=== PATIENT | female | born 1995 | race Caucasian/White ===

== ENCOUNTER 2021-07-16 22:55 | Inpatient (IN) | payer BC, SELFPAY ==
[2021-07-16] VITALS (8 sets, daily range): BP systolic 135–144; BP diastolic 82–101; PULSE 81–93; TEMP 36; O2SAT 99; BMI 33.0
[2021-07-16 21:56] LABS: Absolute Lymphocyte Count 1.83 X10^3/uL (0.83-4.51); Absolute Neutrophil Count 8.1 X10^3/uL (2.0-7.7); Basophil# 0.06 X10^3/uL; Basophil% 0.5 % (0-1); Eosinophil# 0.08 X10^3/uL; Eosinophils% 0.7 % (0-5); Hematocrit 35.3 % (37-47); Hemoglobin 11.7 g/dL (12.0-15.0); Lymphocyte # 1.83 X10^3/ul (0.83-4.51); Lymphocyte % 16.3 % (19-41); Mean Corp Hgb Conc 33.1 g/dL (32-36); Mean Corpuscular Hgb 30.2 pg (27.0-32.0); Mean Corpuscular Volume 91.2 fL (81-99); Mean Platelet Vol. 10.8 fl (6.2-12.0); Monocyte# 0.98 X10^3/uL; Monocyte% 8.8 % (0-10); NRBC Flagged by Analyzer 0 % (0-5); Neutrophil % 72.4 % (47-70); Platelet Count 202 K/mm3 (150-450); RBC Distribution Width CV 13.7 % (11.6-14.6); RBC Distribution Width SD 45.1 fl (35.1-43.9); Red Blood Count 3.87 M/mm3 (4.2-5.4); White Blood Count 11.2 K/mm3 (4.4-11.0)
[2021-07-16 22:13] LABS: Protein, Urine (Random) 7.7 mg/dL (<11.9); Protein:Creat Ratio 244 mg/g CRE (0-200)
[2021-07-16 22:16] LABS: ALB/GLOB Ratio 0.6 RATIO (0.9-2.4); AST(SGOT) 17 U/L (15-37); Alanine Aminotransfer ALT/SGPT 20 U/L (13-56); Albumin, Serum 2.4 g/dL (3.2-5.0); Alkaline Phosphatase 133 U/L (45-117); Anion Gap 8 (5-15); BUN 9 mg/dL (7-18); Chloride 106 mmol/L (98-107); Creatinine, Serum 0.43 mg/dL (0.55-1.02); EST Glomerular Filtration Rate 190 mL/min (>60); Est Glom Filt Rate - Afr Amer 229 mL/min (>60); Globulin 4.2 g/dL (2.2-4.2); Glucose 96 mg/dL (74-106); Potassium 3.9 mmol/L (3.5-5.1); Protein, Total 6.6 g/dL (6.4-8.2); Sodium Level 137 mmol/L (136-145)
[2021-07-16] MEDS: Lactated Ringers 500 ML 999 ML IV (23:30)
[2021-07-16] MEDS: Lactated Ringers 1,000 ML 200 ML IV (23:58)
[2021-07-17] VITALS (89 sets, daily range): BP systolic 118–174; BP diastolic 64–107; PULSE 76–148; RESP 16–18; TEMP 36.1–36.9; O2SAT 85–100
[2021-07-17] MEDS: fentaNYL-bupivacaine (epidural) 100 ML BAG EPIDURAL ×2 (00:59→05:03)
[2021-07-17] MEDS: Mag Hydrox/Al Hydrox/Simeth 30 ML UDC PO (04:01)
[2021-07-17] MEDS: Ondansetron 4 MG/2 ML Vial IV (04:03)
[2021-07-17] MEDS: Lactated Ringers 1,000 ML 200 ML IV (05:03)
--- NOTE | 2021-07-17 06:29 | PCM.HP.OB ---
HPI - General General Date of Admission: 07/16/21 HPI Narrative SRIRAM HARDWICK, is a 26 F who presents at 40w3d in active labor. Painful contractions and cervical change and decision to admit. BP mildly elevated, denies headache, scotoma, RUQ abdominal pain or other associated preeclampsia symptoms. Maternal Data Information CRYSTAL Calculator Estimated Delivery Date Method Current WG Current Estimate 07/13/21 Manual 40w 4d PFSH PFSH Home Medications PreNata 1 tab PO/SL DAILY 07/16/21 [History Last Taken Unknown] Allergy/AdvReac Type Severity Reaction Status Date / Time No Known Allergies Allergy Verified 07/16/21 20:09 Social History Smoking Status: Never smoker History Elective abortions Hx Para 0 Spontaneous abortions Hx # Term Pregnancies Ectopic pregnancies Hx # Pregnancies Multiple births # of living children NST FHR Rate Baby A Baseline: 120 Variability:: Moderate Accelerations:: 15 x 15 Decelerations:: None FHR Category:: Category I Uterine Activity:: every 2-3 minutes, strong ROS Constitutional Constitutional: Reports systems reviewed and no addt'l complaints, except as documented; Denies headache(s) Eyes Eyes: Denies acute decrease in peripheral vision, blurry vision or change in vision ENT HEENT: Reports systems reviewed and no addt'l complaints, except as documented Cardiovascular Cardiovascular: Denies chest pain or dizziness Respiratory/Chest Respiratory/Chest: Denies cough, dyspnea, dyspnea on exertion, shortness of breath at rest or shortness of breath with exertion Gastrointestinal Gastrointestinal: Denies abdominal pain, diarrhea, nausea or vomiting Genitourinary Genitourinary: Denies abdominal discomfort or movement Musculoskeletal Musculoskeletal: Denies limited range of motion Integumentary Integumentary: Reports systems reviewed and no addt'l complaints, except as documented Neurologic Neurologic: Reports systems reviewed and no addt'l complaints, except as documented Psychiatric Psychiatric: Reports systems reviewed and no addt'l complaints, except as documented Endocrine Endocrinology: Reports systems reviewed and no addt'l complaints, except as documented Hematologic/Lymphatic Hematologic/Lymphatic: Reports systems reviewed and no addt'l complaints, except as documented Allergic/Immunologic Allergic/Immunologic: Reports systems reviewed and no addt'l complaints, except as documented Vital Signs Vital Signs Vital Signs: 07/16/21 19:49 07/16/21 19:51 07/16/21 19:54 Temperature 96.8 F L Temperature Source Temporal Pulse Rate 92 87 Blood Pressure 144/97 H BP Systolic 144 BP Diastolic 97 Pulse Ox 99 07/16/21 20:07 07/16/21 20:23 07/16/21 20:38 Temperature Temperature Source Pulse Rate 81 86 90 Blood Pressure 135/82 H 137/101 H 140/95 H BP Systolic 135 137 140 BP Diastolic 82 101 95 Pulse Ox 07/16/21 20:52 07/16/21 22:46 07/17/21 00:03 Temperature 97.5 F L Temperature Source Temporal Pulse Rate 88 93 95 Blood Pressure 137/93 H 142/97 H BP Systolic 137 142 BP Diastolic 93 97 Pulse Ox 100 07/17/21 00:08 07/17/21 00:10 07/17/21 00:13 Temperature Temperature Source Pulse Rate 86 94 83 Blood Pressure 152/96 H BP Systolic 152 BP Diastolic 96 Pulse Ox 100 100 07/17/21 00:14 07/17/21 00:18 07/17/21 00:19 Temperature Temperature Source Pulse Rate 81 87 82 Blood Pressure 142/99 H 135/93 H BP Systolic 142 135 BP Diastolic 99 93 Pulse Ox 100 07/17/21 00:23 07/17/21 00:24 07/17/21 00:28 Temperature Temperature Source Pulse Rate 81 83 Blood Pressure 136/90 H 144/94 H BP Systolic 136 144 BP Diastolic 90 94 Pulse Ox 100 85 07/17/21 00:33 07/17/21 00:38 07/17/21 00:43 Temperature Temperature Source Pulse Rate 94 77 95 Blood Pressure 143/86 H 137/86 H 137/89 H BP Systolic 143 137 137 BP Diastolic 86 86 89 Pulse Ox 100 100 98 07/17/21 00:48 07/17/21 00:49 07/17/21 00:54 Temperature Temperature Source Pulse Rate 93 92 93 Blood Pressure 141/95 H BP Systolic 141 BP Diastolic 95 Pulse Ox 100 90 07/17/21 00:58 07/17/21 01:03 07/17/21 01:04 Temperature Temperature Source Pulse Rate 85 87 87 Blood Pressure 156/90 H 139/100 H BP Systolic 156 139 BP Diastolic 90 100 Pulse Ox 100 100 07/17/21 01:08 07/17/21 01:09 07/17/21 01:11 Temperature Temperature Source Pulse Rate 92 81 92 Blood Pressure 153/86 H BP Systolic 153 BP Diastolic 86 Pulse Ox 100 92 07/17/21 01:13 07/17/21 01:14 07/17/21 01:18 Temperature Temperature Source Pulse Rate 93 Blood Pressure 124/75 H BP Systolic 124 BP Diastolic 75 Pulse Ox 100 97 07/17/21 01:19 07/17/21 01:23 07/17/21 01:27 Temperature Temperature Source Pulse Rate 96 97 91 Blood Pressure 131/73 H 128/73 H 127/73 H BP Systolic 131 128 127 BP Diastolic 73 73 73 Pulse Ox 99 07/17/21 01:28 07/17/21 01:33 07/17/21 01:38 Temperature Temperature Source Pulse Rate 92 78 93 Blood Pressure BP Systolic BP Diastolic Pulse Ox 99 97 97 07/17/21 01:43 07/17/21 01:48 07/17/21 01:53 Temperature Temperature Source Pulse Rate 104 H 76 76 Blood Pressure BP Systolic BP Diastolic Pulse Ox 97 97 97 07/17/21 01:58 07/17/21 01:59 07/17/21 02:03 Temperature Temperature Source Pulse Rate 85 100 Blood Pressure 128/83 H BP Systolic 128 BP Diastolic 83 Pulse Ox 97 98 07/17/21 02:08 07/17/21 02:13 07/17/21 02:28 Temperature 97.3 F L Temperature Source Temporal Pulse Rate 77 78 93 Blood Pressure 137/91 H BP Systolic 137 BP Diastolic 91 Pulse Ox 97 97 07/17/21 03:52 07/17/21 03:53 07/17/21 04:47 Temperature Temperature Source Pulse Rate 99 100 103 H Blood Pressure 151/100 H 155/90 H 158/102 H BP Systolic 151 155 158 BP Diastolic 100 90 102 Pulse Ox 99 07/17/21 04:52 07/17/21 05:15 07/17/21 05:17 Temperature 97.5 F L Temperature Source Temporal Pulse Rate 101 H 112 H Blood Pressure 140/91 H BP Systolic 140 BP Diastolic 91 Pulse Ox 99 07/17/21 05:19 07/17/21 05:22 07/17/21 05:26 Temperature Temperature Source Pulse Rate 110 H 110 H 112 H Blood Pressure 174/107 H 140/104 H BP Systolic 174 140 BP Diastolic 107 104 Pulse Ox 99 94 07/17/21 05:27 07/17/21 05:31 07/17/21 05:32 Temperature Temperature Source Pulse Rate 88 94 115 H Blood Pressure 155/107 H BP Systolic 155 BP Diastolic 107 Pulse Ox 96 94 99 07/17/21 05:36 07/17/21 05:37 07/17/21 05:41 Temperature Temperature Source Pulse Rate 89 96 Blood Pressure 165/103 H 166/104 H BP Systolic 165 166 BP Diastolic 103 104 Pulse Ox 93 96 07/17/21 05:42 07/17/21 05:46 07/17/21 05:47 Temperature Temperature Source Pulse Rate 103 H 99 124 H Blood Pressure 151/91 H BP Systolic 151 BP Diastolic 91 Pulse Ox 96 93 96 07/17/21 05:52 07/17/21 05:55 07/17/21 05:57 Temperature Temperature Source Pulse Rate 98 99 103 H Blood Pressure 142/87 H BP Systolic 142 BP Diastolic 87 Pulse Ox 96 96 07/17/21 06:02 07/17/21 06:06 07/17/21 06:07 Temperature Temperature Source Pulse Rate 93 105 H 100 Blood Pressure 146/94 H BP Systolic 146 BP Diastolic 94 Pulse Ox 96 96 07/17/21 06:12 07/17/21 06:17 07/17/21 06:18 Temperature Temperature Source Pulse Rate 93 95 Blood Pressure 150/101 H BP Systolic 150 BP Diastolic 101 Pulse Ox 96 97 Weight Weight: 186 lb 6.4 oz Body Mass Index (BMI) 33.0 Physical Exam Const alert and oriented x3 General Appearance: cooperative Orientation / Consciousness: awake, oriented to person, oriented to place and oriented to time Exam Limitations: no limitations HEENT normocephalic Head and Scalp: normal to inspection, normocephalic and atraumatic Face and Sinus: normal facial exam Eyes General Eye: normal appearance of both eyes Neck full ROM Chest Chest: symmetrical chest wall rise Resp normal respiratory effort and normal air movement Auscultation: clear to auscultation bilaterally Cardio regular rate, regular rhythm, S1 normal heart sound, S2 normal heart sound, no murmurs, no rub, no gallops and no clicks GI normal to inspection, nondistended, normoactive bowel sounds and non-tender appearance of the vagina normal Bladder / Kidney Exam: no CVA tenderness Manual OB Exam: estimated gestational size appropriate, presentation cephalic, dilated 9, effaced 100 and station +1 Amniotic Fluid: clear amniotic fluid Back/Spine normal ROM Extremity normal to inspection and full ROM Skin no rashes or lesions noted Neuro oriented x3, CN's II-XII intact bilaterally and moves all extremities Sensorium / Orientation: awake, alert and oriented to person Motor Exam: clonus absent Deep Tendon Reflexes: Rt Patellar (L4): 2+ and Lt Patellar (L4): 2+ Labs Labs Labs: Blood Type Pending Antibody Screen Pending Hct 35.3 % (37-47) L Hgb 11.7 g/dL (12.0-15.0) L Neisseria gonorrhoeae DNA (ROBERTO) Negative (Negative) GBS negative COVID negative 1hr GCT 153, 3hr GTT normal Rubella immune RPR negative HBsAG negative HepC negative HIV negative A positive, antibody screen negative GC/CT negative Urine tox negative Assessment & Plan (1) Active labor at term: (2) Gestational HTN: PLAN: 1) Admit to labor and delivery 2) Routine labs, covid screen 3) GBS negative 4) Epidural for pain management 5) AROM clear fluid 6) BP elevated, notified of 2 severe range pressures but then return to mild range. No treatment at this time. If another severe range BP will treat. Asymptomatic preeclampsia symptoms and normal preeclamspia labs. 7) Continue with expectant management and pushing efforts for second stage. 8) collaborative physician and notified of patient status and admission.
[2021-07-17] MEDS: Oxytocin 30 units/NS 500 ml 30 UNITS/500 ML IV.SOLN 334 UNITS IV (06:52)
[2021-07-17] MEDS: miSOPROStol 200 MCG Tablet 1000 MCG RC (06:57)
--- NOTE | 2021-07-17 07:43 | EX.PCM.OBRPT ---
Assessment & Plan (1) Vaginal delivery: (2) Laceration of labia minora: (3) Laceration of vaginal wall or sulcus without perineal laceration during delivery: (4) Uterine atony: Maternal Data Information CRYSTAL Calculator Estimated Delivery Date Method Current WG Current Estimate 07/13/21 Manual 40w 4d Vaginal Delivery Maternal Presentation Maternal Presentation: Active Labor Operative Information Date of Procedure: 07/17/21 Pre-Operative Diagnosis: Active Labor Post-Operative Diagnosis: Surgery / Procedure Performed: Spontaneous Vaginal Delivery Type of Anesthesia: Epidural and Local with 1% Lidocaine Estimated Blood Loss: 500 ml Time of Delivery: 06:50 Findings Description of Procedure: Progressed to complete with increased pressure. Epidural for pain management. of viable male over bilateral sulcus lacerations and right labial laceration. APGARS 8,9. Infant head delivered and body immediately forthcoming. Mouth and nares suctioned for secretions, spontaneous cry. Pitocin started for active third stage management.Placenta delivered intact with 3 vessel cord. Uterus boggy and atony, 1000mcg cytotec given rectally, fundus firm. Perineum inspected and revealed bilateral sulcus lacerations and right labial laceration. Repaired under epideral analgesia and lidocaine with 3.0 vicryl. Vaginal sweep completed. sponge and instrument count correct. notified of delivery. Mom and baby stable, family bonding well. Planning to breastfeed. Presentation: Vertex Amniotic Membrane Rupture Type: Artificial Amniotic Fluid Description: Clear Placental Delivery Description: Spontaneous Placenta Disposition: [facility] Cord Vessel Description: 3 Vessels Cord Entanglement: None Infant A Gender: Male (1 minute): 8 (5 minute): 9 Delayed Cord Clamping: Yes Post Vaginal Delivery Medications Given After Delivery: IV Pitocin and - (1000mcg cytotec) Episiotomy Description: None Laceration: Vaginal Extension/lac (bilateral sulcus lacerations ) and 1st degree (right labial) Complication Complications: None
[2021-07-17] MEDS: Ibuprofen 600 MG Tablet PO ×2 (08:27→17:49)
[2021-07-17] MEDS: Benzocaine/Lanolin/Aloe Vera 1 SPRAY EACH TOPICAL (08:28)
[2021-07-17] MEDS: 0.9% Saline Lock 10 ML Syringe IV (08:56)
--- NOTE | 2021-07-17 12:10 | NURSING ---
right labial and bilateral succal lacerations appropriately approximated
--- NOTE | 2021-07-17 18:09 | NURSING ---
right labial and bilateral succal lacerations unchanged from previous assessment by this RN
[2021-07-17] MEDS: Acetaminophen 500 MG Tablet 1000 MG PO (23:26)
[2021-07-18 04:47] VITALS: BP 123/56; PULSE 92; RESP 16; TEMP 36.8
[2021-07-18 06:40] LABS: Hematocrit 23.5 % (37-47); Hemoglobin 7.8 g/dL (12.0-15.0); Mean Corp Hgb Conc 33.2 g/dL (32-36); Mean Corpuscular Hgb 30.7 pg (27.0-32.0); Mean Corpuscular Volume 92.5 fL (81-99); Mean Platelet Vol. 10.4 fl (6.2-12.0); Platelet Count 159 K/mm3 (150-450); RBC Distribution Width SD 46.5 fl (35.1-43.9); Red Blood Count 2.54 M/mm3 (4.2-5.4)
[2021-07-18 07:38] VITALS: BP 109/66; PULSE 91; RESP 16; TEMP 35.7
[2021-07-18 09:05] VITALS: TEMP 36.2
--- NOTE | 2021-07-18 09:45 | PCM.PN.OB ---
Subjective Subjective Pain well controlled. Average lochia. Denies lightheadedness. Denies shortness of breath or palpitations. Objective Data Objective Data Vital Signs: Vital Signs Temp Pulse Resp BP Pulse Ox 97.1 F L 91 16 109/66 98 07/18/21 09:05 07/18/21 07:38 07/18/21 07:38 07/18/21 07:38 07/17/21 16:50 Oxygen Delivery Method Room Air Weight: 84.55 kg Body Mass Index (BMI) 33.0 Intake & Output: Intake and Output for Last 24 Hours 07/16/21 07/17/21 07/18/21 23:59 23:59 23:59 Intake Total 2212.94 / 2212.94 Output Total 1300 / 1300 Balance 912.94 / 912.94 Lab / Micro Data Result Diagrams: 07/18/21 06:30 07/16/21 21:40 Labs: Laboratory Results - last 24 hr 07/16/21 23:20: Blood Type A POSITIVE, Antibody Screen NEGATIVE 07/18/21 06:30: WBC 10.0, RBC 2.54 L, Hgb 7.8 L, Hct 23.5 L, MCV 92.5, MCH 30.7, MCHC 33.2, RDW Std Deviation 46.5 H, RDW Coeff of Alex 14.0, Plt Count 159, MPV 10.4 Micro: Microbiology 07/16/21 23:40 Nasal Secretion SARS-CoV-2 Antigen (Rapid) - Final Physical Exam Const alert and no apparent distress Narrative: Fundus firm, below umbilicus. Assessment & Plan (1) Vaginal delivery: PLAN: day #1 status post vaginal delivery. Calculated EBL 790 cc from her atony without hemorrhage. She has mild acute blood loss anemia superimposed on chronic antepartum anemia. Patient is tolerating anemia well. Recommend iron supplementation with vitamins. Desires discharge home today. is breast-feeding and doing well.
--- NOTE | 2021-07-18 09:46 | PCM.DC.SUM ---
Providers Date of Admission: 07/16/21 Primary Care Physician: No Primary Care Phys Reason For Visit: LABOR Diagnosis Discharge Diagnosis (1) Vaginal delivery: Status: Acute Code(s): O80 - Encounter for full-term uncomplicated delivery Medications at Discharge Home Medications PreNata 1 tab PO/SL DAILY 07/16/21 Hospital Course Operations None Procedures None Summary of Care Provided Hospital Course: Patient was admitted for labor and had a spontaneous vaginal delivery with a vaginal sulcus tear. She had mild atony without hemorrhage. She is tolerating her anemia well. Desires discharge home today with routine instructions. Weight / BMI Weight Weight: 84.55 kg Body Mass Index (BMI) 33.0 ABG / Lab / Microbiology Data Result Diagrams: 07/18/21 06:30 07/16/21 21:40 Laboratory: Laboratory Results - last 24 hr 07/16/21 23:20: Blood Type A POSITIVE, Antibody Screen NEGATIVE 07/18/21 06:30: WBC 10.0, RBC 2.54 L, Hgb 7.8 L, Hct 23.5 L, MCV 92.5, MCH 30.7, MCHC 33.2, RDW Std Deviation 46.5 H, RDW Coeff of Alex 14.0, Plt Count 159, MPV 10.4 Microbiology: Microbiology 07/16/21 23:40 Nasal Secretion SARS-CoV-2 Antigen (Rapid) - Final D/C Instructions Discharge Diet: No restrictions May resume sexual activity in: 6 weeks Call your doctor if your incision/area has: Continuous Slow Oozing, Sudden Increased Bleeding, Foul Smelling Discharge and Swelling at the incision site Call your doctor if you observe: Fever of 101 or Higher and Inability to urinate Please Follow Up With: Gabby Castaneda MD When: Follow up with our office in 1-2 and 6 weeks or as needed. [phone] Meaningful Use Info Meaningful Use Diagnoses (Choose all that apply): None applicable Discharge Plan Admission Admit Date/Time: 07/16/21 22:55 Primary Reason for Your Visit: Vaginal delivery Attending Provider: Carley Aguilar Primary Care Provider: Care Physician,No Primary Instructions Patient Instructions: After a Vaginal Discharge Orders/Prescriptions Prescriptions: No Action PreNata 1 tab PO/SL DAILY RF: 0 Referrals / Follow Up: Care Physician,No Primary [Primary Care Provider] - Disposition Disposition (needs filled in before D/C Order can be placed): Home, Self Care
== END 2021-07-18 11:40 | disposition home or self-care (01) | DRG 806 ==
LOC: WPOUT 22:57 → WP 22:57
PROVIDERS: Admitting Provider Advanced Practice Midwife; Visit Provider Advanced Practice Midwife
DX: O16.4 Unspecified maternal hypertension, complicating childbirth (principal); D62 Acute posthemorrhagic anemia; Z37.0 Single live birth; O99.02 Anemia complicating childbirth; O70.0 First degree perineal laceration during delivery; O62.2 Other uterine inertia; Z3A.40 40 weeks gestation of pregnancy
CPT/HCPCS: 59025; 59050; 80053; 82570; 84156; 85025; 85027; 86850; 86900; 86901; 87426; 99218; J7120; A4216; G0378; J2405

== ENCOUNTER 2023-01-30 20:05 | Inpatient (IN) | payer BC, SELFPAY ==
[2023-01-30] VITALS (45 sets, daily range): BP systolic 98–139; BP diastolic 55–79; PULSE 88–144; TEMP 36.5–36.7; O2SAT 86–100; BMI 30.5
[2023-01-30 20:00] LABS: ROM Internal Control Test YES-OK TO RESULT pt. (Internal QC)
[2023-01-30] MEDS: Lactated Ringers 1,000 ML 200 ML IV (20:00)
[2023-01-30 20:02] LABS: ROM Patient Test POSITIVE (Negative)
[2023-01-30 20:18] LABS: Absolute Lymphocyte Count 1.26 X10^3/uL (0.83-4.51); Absolute Neutrophil Count 6.1 X10^3/uL (2.0-7.7); Basophil# 0.02 X10^3/uL; Basophil% 0.2 % (0-1); Eosinophil# 0.04 X10^3/uL; Eosinophils% 0.5 % (0-5); Hematocrit 37.6 % (37-47); Hemoglobin 12.5 g/dL (12.0-15.0); Lymphocyte # 1.26 X10^3/ul (0.83-4.51); Lymphocyte % 15.5 % (19-41); Mean Corp Hgb Conc 33.2 g/dL (32-36); Mean Corpuscular Hgb 30.4 pg (27.0-32.0); Mean Corpuscular Volume 91.5 fL (81-99); Mean Platelet Vol. 10.7 fl (6.2-12.0); Monocyte# 0.65 X10^3/uL; NRBC Flagged by Analyzer 0 % (0-5); Neutrophil # 6.09 X10^3/uL (2.7-7.7); Neutrophil % 75.2 % (47-70); Platelet Count 212 K/mm3 (150-450); RBC Distribution Width SD 42.5 fl (35.1-43.9); Red Blood Count 4.11 M/mm3 (4.2-5.4); White Blood Count 8.1 K/mm3 (4.4-11.0)
[2023-01-30] MEDS: Ondansetron 4 MG/2 ML Vial IV (20:56)
[2023-01-30] MEDS: fentaNYL-bupivacaine (epidural) 100 ML BAG EPIDURAL (20:58)
[2023-01-30] MEDS: Oxytocin 10 UNITS/ML Vial IM (21:15)
[2023-01-30] MEDS: Oxytocin 15 Units/NS 250ml 15 UNITS/250 ML IV.SOLN 83 UNITS IV (21:17)
--- NOTE | 2023-01-30 21:24 | PCM.HP.OB ---
HPI - General General Date of Admission: 01/30/23 Date of Service: 01/30/23 HPI Narrative SRIRAM HARDWICK, is a 27 F who presents with LOF & ctxs. Maternal Data Information Final CRYSTAL: 01/29/23 Gestational age: 40&1 PFSH PFSH Medical History (Updated 01/30/23 @ 21:[address] Brad Castellon MD) Allergic dermatitis Vaginal delivery Home Medications PreNata 1 tab PO/SL DAILY Check with primary doctor 07/16/21 [History Last Taken Unknown] Allergy/AdvReac Type Severity Reaction Status Date / Time No Known Allergies Allergy Verified 08/06/21 14:16 Social History Smoking Status: Never smoker History Elective abortions Hx Para 1 Spontaneous abortions Hx # Term Pregnancies Ectopic pregnancies Hx # Pregnancies Multiple births # of living children Vital Signs Vital Signs Vital Signs: 01/30/23 19:25 01/30/23 19:25 01/30/23 19:25 Temperature Temperature Source Temporal Pulse Rate 117 H Blood Pressure 139/79 H BP Systolic 139 BP Diastolic 79 Pulse Ox 01/30/23 19:25 01/30/23 19:26 01/30/23 19:26 Temperature 97.9 F Temperature Source Pulse Rate 109 H Blood Pressure BP Systolic BP Diastolic Pulse Ox 96 01/30/23 20:36 01/30/23 20:36 01/30/23 20:41 Temperature Temperature Source Pulse Rate 97 94 Blood Pressure BP Systolic BP Diastolic Pulse Ox 100 01/30/23 20:41 01/30/23 20:43 01/30/23 20:43 Temperature Temperature Source Pulse Rate 96 Blood Pressure 125/72 H BP Systolic 125 BP Diastolic 72 Pulse Ox 98 01/30/23 20:46 01/30/23 20:46 01/30/23 20:49 Temperature Temperature Source Pulse Rate 88 Blood Pressure 129/78 H BP Systolic 129 BP Diastolic 78 Pulse Ox 99 01/30/23 20:49 01/30/23 20:51 01/30/23 20:51 Temperature Temperature Source Pulse Rate 93 109 H Blood Pressure BP Systolic BP Diastolic Pulse Ox 98 01/30/23 20:53 01/30/23 20:53 01/30/23 20:55 Temperature Temperature Source Pulse Rate 100 Blood Pressure 98/60 BP Systolic 98 BP Diastolic 60 Pulse Ox 86 01/30/23 20:55 01/30/23 20:56 01/30/23 20:56 Temperature Temperature Source Pulse Rate 96 112 H Blood Pressure BP Systolic BP Diastolic Pulse Ox 99 01/30/23 20:58 01/30/23 20:58 01/30/23 21:03 Temperature Temperature Source Pulse Rate 122 H Blood Pressure 112/56 L 126/60 H BP Systolic 112 126 BP Diastolic 56 60 Pulse Ox 01/30/23 21:03 01/30/23 21:07 01/30/23 21:07 Temperature Temperature Source Pulse Rate 144 H 115 H Blood Pressure 125/60 H BP Systolic 125 BP Diastolic 60 Pulse Ox 01/30/23 21:19 01/30/23 21:19 Temperature Temperature Source Pulse Rate 111 H Blood Pressure 118/55 L BP Systolic 118 BP Diastolic 55 Pulse Ox Weight Weight: 178 lb 2.136 oz Body Mass Index (BMI) 30.5 Labs Labs Labs: Blood Type A POSITIVE Antibody Screen NEGATIVE Hct 37.6 % (37-47) Hgb 12.5 g/dL (12.0-15.0) Syphilis Total Ab Pending Chlamydia DNA (ROBERTO) Negative (Negative) Neisseria gonorrhoeae DNA (ROBERTO) Negative (Negative) Rhogam given: No See [facility] H&P Assessment & Plan (1) 40 weeks gestation of : COMMENT: @ 40&1 PLAN: Admit to L&D GBS negative Patient with precipitous vaginal delivery - see delivery note
--- NOTE | 2023-01-30 21:27 | EX.PCM.OBRPT ---
Maternal Data Information Final CRYSTAL: 01/29/23 Gestational age: 40&1 Vaginal Delivery Maternal Presentation Maternal Presentation: Active Labor and Spontaneous Rupture of Membranes Operative Information Date of Procedure: 01/30/23 Pre-Operative Diagnosis: Labor Post-Operative Diagnosis: Labor Surgery / Procedure Performed: Spontaneous Vaginal Delivery Type of Anesthesia: Epidural Estimated Blood Loss: 150ml Findings Description of Procedure: Patient precipitously delivered through a loose nuchal cord x3. 3VC clamped & cut. Placenta delivered with gentle traction and good uterine tone obtained. Presentation: Vertex Amniotic Membrane Rupture Type: Spontaneous Amniotic Fluid Description: Clear Placental Delivery Description: Expressed Placenta Disposition: [facility] Specimen(s) Removed: Placenta Cord Vessel Description: 3 Vessels Cord Entanglement: Around neck x 2, loose (x3 loose) Nuchal Cord Compression: Without compression A Gender: Female (1 minute): 8 (5 minute): 9 Delayed Cord Clamping: Yes Post Vaginal Delivery Medications Given After Delivery: IV Pitocin Episiotomy Description: None Laceration: None Complication Complications: None
[2023-01-31 00:05] LABS: Syphilis Antibodies Non-reactive
[2023-01-31 02:57] VITALS: BP 127/71; PULSE 96; RESP 15; TEMP 36.3; O2SAT 96
--- NOTE | 2023-01-31 03:30 | NURSING ---
Report received from Shaye WITT, taking over pt care at this time.
[2023-01-31] MEDS: Ibuprofen 600 MG Tablet PO ×2 (05:58→15:31)
[2023-01-31 08:35] VITALS: BP 118/68; PULSE 87; RESP 16; TEMP 36.4
[2023-01-31] MEDS: Acetaminophen 500 MG Tablet 1000 MG PO (10:41)
[2023-01-31 12:50] VITALS: BP 111/66; PULSE 77; RESP 16; TEMP 35.9
--- NOTE | 2023-01-31 15:59 | PN.OBGYN_ITS ---
Subjective Subjective Doing well per patient and nursing staff. Ambulating and taking PO without difficulty. Voiding and passing flatus. Pain controlled. , services for assistance. Denies headache, visual changes, chest pain, shortness of breath, leg pain or increased bleeding. Lochia normal. Objective Data Objective Data Vital Signs: Vital Signs Temp Pulse Resp BP Pulse Ox O2 Del Method 96.7 F L 77 16 111/66 96 Room Air 01/31/23 12:50 01/31/23 12:50 01/31/23 12:50 01/31/23 12:50 01/31/23 02:57 01/31/23 12:50 Oxygen Delivery Method Room Air Weight: 178 lb 2.136 oz Body Mass Index (BMI) 30.5 Intake & Output: Intake and Output for Last 24 Hours 01/29/23 01/30/23 01/31/23 23:59 23:59 23:59 Intake Total 250 / 250 250 / 250 Output Total 1550 / 1550 Balance 250 / 250 -1300 / -1300 Lab / Micro Data Result Diagrams: 01/30/23 20:00 Labs: Laboratory Results - last 24 hr 01/30/23 19:33: Vag Amniotic Fld Detect POSITIVE H 01/30/23 20:00: WBC 8.1, RBC 4.11 L, Hgb 12.5, Hct 37.6, MCV 91.5, MCH 30.4, MCHC 33.2, RDW Std Deviation 42.5, RDW Coeff of Alex 13.0, Plt Count 212, MPV 10.7, Immature Gran % (Auto) 0.600, Neut % (Auto) 75.2 H, Lymph % (Auto) 15.5 L, [place] % (Auto) 8.0, Eos % (Auto) 0.5, Baso % (Auto) 0.2, Absolute Neuts (auto) 6.1, Absolute Lymphs (auto) 1.26, Nucleated RBC % 0 01/30/23 20:00: Blood Type A POSITIVE, Antibody Screen NEGATIVE 01/30/23 20:00: Syphilis Total Ab Non-reactive Physical Exam Const alert and oriented x3 General Appearance: cooperative Orientation / Consciousness: awake, oriented to person, oriented to place and oriented to time Exam Limitations: no limitations HEENT normocephalic Head and Scalp: normal to inspection, normocephalic and atraumatic Face and Sinus: normal facial exam Eyes General Eye: normal appearance of both eyes Neck full ROM Chest Chest: symmetrical chest wall rise Resp normal respiratory effort and normal air movement Auscultation: clear to auscultation bilaterally Cardio regular rate, regular rhythm, S1 normal heart sound, S2 normal heart sound, no murmurs, no rub, no gallops and no clicks GI normal to inspection, nondistended, normoactive bowel sounds and non-tender appearance of the vagina normal Bladder / Kidney Exam: no CVA tenderness Back/Spine normal ROM Extremity normal to inspection and full ROM Skin no rashes or lesions noted Neuro oriented x3, CN's II-XII intact bilaterally and moves all extremities Sensorium / Orientation: awake, alert and oriented to person Motor Exam: clonus absent Deep Tendon Reflexes: Rt Patellar (L4): 2+ and Lt Patellar (L4): 2+ Assessment & Plan (1) Vaginal delivery: (2) Lactating mother: PLAN: Plan 1) Routine PP care 2) VSS 3) 4) Pain management 5) D/C home per patient request 6) Follow up in 2 week and 6 week PP
--- NOTE | 2023-01-31 16:01 | PCM.DC.SUM ---
Providers Date of Admission: 01/30/23 Primary Care Physician: Shannon Primary Care Phys Reason For Visit: VAG DELIVERY Diagnosis Discharge Diagnosis (1) Vaginal delivery: Status: Acute Code(s): O80 - Encounter for full-term uncomplicated delivery (2) Lactating mother: Status: Acute Code(s): Z39.1 - Encounter for care and examination of lactating mother Plan 1) Routine PP care 2) VSS 3) 4) Pain management 5) D/C home per patient request 6) Follow up in 2 week and 6 week PP Medications at Discharge Home Medications PreNata 1 tab PO/SL DAILY Check with primary doctor 07/16/21 acetaminophen 500 mg tablet 1,000 mg PO Q6H PRN PRN Pain 1-10 Or Fever #0 tabs 01/31/23 ibuprofen 600 mg tablet 600 mg PO Q6H PRN PRN Pain Score 1-3 #0 tabs 01/31/23 Weight / BMI Weight Weight: 178 lb 2.136 oz Body Mass Index (BMI) 30.5 ABG / Lab / Microbiology Data Result Diagrams: 01/30/23 20:00 Laboratory: Laboratory Results - last 24 hr 01/30/23 19:33: Vag Amniotic Fld Detect POSITIVE H 01/30/23 20:00: WBC 8.1, RBC 4.11 L, Hgb 12.5, Hct 37.6, MCV 91.5, MCH 30.4, MCHC 33.2, RDW Std Deviation 42.5, RDW Coeff of Alex 13.0, Plt Count 212, MPV 10.7, Immature Gran % (Auto) 0.600, Neut % (Auto) 75.2 H, Lymph % (Auto) 15.5 L, [place] % (Auto) 8.0, Eos % (Auto) 0.5, Baso % (Auto) 0.2, Absolute Neuts (auto) 6.1, Absolute Lymphs (auto) 1.26, Nucleated RBC % 0 01/30/23 20:00: Blood Type A POSITIVE, Antibody Screen NEGATIVE 01/30/23 20:00: Syphilis Total Ab Non-reactive Meaningful Use Info Meaningful Use Diagnoses (Choose all that apply): None applicable Discharge Plan Admission Admit Date/Time: 01/30/23 20:05 Primary Reason for Your Visit: Vaginal Delivery Attending Provider: Brad Castellon Primary Care Provider: Care Physician,No Primary Discharge Orders/Prescriptions Prescriptions: New acetaminophen 500 mg Tablet 1,000 mg PO Q6H PRN PRN (Reason: Pain 1-10 Or Fever) Qty: 0 0RF ibuprofen 600 mg Tablet 600 mg PO Q6H PRN PRN (Reason: Pain Score 1-3) Qty: 0 0RF Continued PreNata 1 tab PO/SL DAILY Referrals / Follow Up: Care Physician,No Primary [Primary Care Provider] - Disposition Disposition (needs filled in before D/C Order can be placed): Home, Self Care
[2023-01-31 16:42] VITALS: BP 116/74; PULSE 94; RESP 16; TEMP 37.1
[2023-01-31 21:38] VITALS: BP 105/78; PULSE 84; RESP 16; TEMP 36.1; O2SAT 98
== END 2023-01-31 22:10 | disposition home or self-care (01) | DRG 807 ==
LOC: WPOUT 20:06 → WP 20:06
PROVIDERS: Admitting Provider Obstetrics & Gynecology; Visit Provider Obstetrics & Gynecology
DX: O62.3 Precipitate labor (principal); Z37.0 Single live birth; O69.81X0 Labor and delivery complicated by cord around neck, without compression, not applicable or unspecified; Z3A.40 40 weeks gestation of pregnancy
CPT/HCPCS: 59025; 59050; 84112; 85025; 86780; 86850; 86900; 86901; 99221; J7120; G0378; J2405

== ENCOUNTER 2023-04-02 02:36 | Emergency (ER) | payer BC, SELFPAY ==
[2023-04-02 02:38] VITALS: BP 117/95; PULSE 124; RESP 18; TEMP 37.7; O2SAT 100
[2023-04-02 02:41] VITALS: BP 117/95; PULSE 117; RESP 18; TEMP 37.7; O2SAT 98
[2023-04-02] MEDS: Acetaminophen 500 MG Tablet 1000 MG PO (03:20)
[2023-04-02] MEDS: 0.9% Normal Saline 1,000 ML 999 ML IV (03:20)
[2023-04-02] MEDS: Ondansetron 4 MG/2 ML Vial IV (03:20)
--- NOTE | 2023-04-02 03:30 | RAD_ITS ---
INDICATION: cough EXAMINATION/TECHNIQUE: X-RAY - XR Chest 2 Views COMPARISON: FINDINGS: LINES/DEVICES: None. LUNGS: No consolidation, edema or effusion. No pneumothorax. MEDIASTINUM AND CARDIOVASCULAR STRUCTURES: Cardiac silhouette not enlarged. Central airways and mediastinal contour are unremarkable. BONES AND SOFT TISSUES: There is dextroscoliosis of the thoracic spine. RAD/Chest PA and Lateral IMPRESSION: No radiographic evidence of acute cardiopulmonary disease. Electronically Signed: Darinel Spain MD at 4:16 EDT ,
[2023-04-02 03:32] LABS: Absolute Lymphocyte Count 3.03 X10^3/uL (0.83-4.51); Absolute Neutrophil Count 4.4 X10^3/uL (2.0-7.7); Basophil# 0.04 X10^3/uL; Basophil% 0.5 % (0-1); Eosinophil# 0.15 X10^3/uL; Eosinophils% 1.9 % (0-5); Hematocrit 43.2 % (37-47); Hemoglobin 13.8 g/dL (12.0-15.0); Lymphocyte # 3.03 X10^3/ul (0.83-4.51); Lymphocyte % 38.2 % (19-41); Mean Corp Hgb Conc 31.9 g/dL (32-36); Mean Corpuscular Hgb 29.2 pg (27.0-32.0); Mean Corpuscular Volume 91.5 fL (81-99); Mean Platelet Vol. 10.4 fl (6.2-12.0); Monocyte# 0.35 X10^3/uL; Monocyte% 4.4 % (0-10); NRBC Flagged by Analyzer 0 % (0-5); Neutrophil # 4.35 X10^3/uL (2.7-7.7); Neutrophil % 54.7 % (47-70); POSITIVE MORPHOLOGY YES; Platelet Count 294 K/mm3 (150-450); RBC Distribution Width CV 12.3 % (11.6-14.6); RBC Distribution Width SD 41.8 fl (35.1-43.9); Red Blood Count 4.72 M/mm3 (4.2-5.4); White Blood Count 7.9 K/mm3 (4.4-11.0)
[2023-04-02 03:37] LABS: Differential Indicated SCAN CRITERIA MET
[2023-04-02 03:52] LABS: AST(SGOT) 30 U/L (15-37); Alanine Aminotransfer ALT/SGPT 38 U/L (13-56); Alkaline Phosphatase 85 U/L (45-117); Anion Gap 7 (5-15); BUN 17 mg/dL (7-18); BUN/Creat Ratio 16.8 RATIO (10-20); Bilirubin, Direct < 0.05 mg/dL (0.00-0.30); Calcium,Total 9.4 mg/dL (8.5-10.1); Chloride 106 mmol/L (98-107); Creatinine, Serum 1.01 mg/dL (0.55-1.02); EST Glomerular Filtration Rate 70 mL/min (>60); Est Glom Filt Rate - Afr Amer 84 mL/min (>60); Globulin 3.8 g/dL (2.2-4.2); Glucose 93 mg/dL (74-106); Potassium 4.3 mmol/L (3.5-5.1); Protein, Total 7.8 g/dL (6.4-8.2); Sodium Level 142 mmol/L (136-145)
[2023-04-02 03:58] LABS: Differential Comment SCANNED
--- NOTE | 2023-04-02 04:40 | EDS_ITS ---
HPI History of Present Illness Chief Complaint: General Illness Informant: patient Narrative Narrative: Patient is a 27-year-old female with no significant history other than vaginal delivery roughly 60 days ago. She states she went to bed normally and then awoke with sensation of of subjective fevers and chills with right-sided chest discomfort mild cough and bouts of nausea/vomiting. Patient denies any known sick contacts but with the sudden onset of symptoms presents for evaluation [facility] Medical History (Updated 04/02/23 @ 04:[address] Luis Jordan, ) Allergic dermatitis Vaginal delivery Home Medications PreNata 1 tab PO/SL DAILY Check with primary doctor 07/16/21 [History Last Taken Unknown] acetaminophen 500 mg tablet 1,000 mg PO Q6H PRN PRN Pain 1-10 Or Fever #0 tabs 01/31/23 [Rx Last Taken Unknown] ibuprofen 600 mg tablet 600 mg PO Q6H PRN PRN Pain Score 1-3 #0 tabs 01/31/23 [Rx Last Taken Unknown] clindamycin HCl 300 mg capsule 300 mg PO 4X/DAY 7 days #28 caps 04/02/23 [Rx Last Taken Unknown] ondansetron 4 mg disintegrating tablet 4 mg PO TID PRN nausea and vomiting #21 tabs 04/02/23 [Rx Last Taken Unknown] Allergy/AdvReac Type Severity Reaction Status Date / Time No Known Allergies Allergy Verified 08/06/21 14:16 Social History Smoking Status: Never smoker ROS [facility] ED Constitutional Constitutional ED: Reports chills, fever(s) and subjective ENT ENT ED: Reports rhinorrhea; Denies sore throat Cardiovascular Cardiovascular: Denies chest pain Respiratory/Chest Respiratory/Chest: Reports cough; Denies dyspnea Gastrointestinal Gastrointestinal: Reports nausea and vomiting; Denies abdominal pain or diarrhea Genitourinary Genitourinary ED: Denies dysuria or hematuria Musculoskeletal Musculoskeletal: Reports myalgias Integumentary Denies rash Neurologic Neurologic: Denies headache(s) Hematologic/Lymphatic Hematologic/Lymphatic: Denies easy bleeding or easy bruising EXAM Physical Exam Const Vital Signs: 04/02/23 02:38 04/02/23 02:41 Temperature 100 F H 100 F H Temperature Source Oral Oral Pulse Rate 124 H 117 H Respiratory Rate 18 18 Blood Pressure 117/95 H 117/95 H Blood Pressure Mean 102 102 Pulse Ox 100 98 Oxygen Delivery Method Room Air Room Air Positive well nourished and well developed General Appearance ED: well developed HEENT Reports TM's clear and moist mucous membranes HEENT Narrative: Mild cobblestoning in the posterior pharynx consistent with sinus drainage without airway edema or compromise or signs of secondary infection Tympanic Membrane ED: Yes TM's clear Eyes PERRL and EOMs intact bilaterally Eyes Narrative: No sclericterus noted Neck supple Neck Narrative: No nuchal rigidity present Chest Wall Chest Narrative: Along the right lateral chest wall/breast region there is faint erythema and faint warmth with tenderness to palpation but no obvious induration or fluctuance or lymphangitic streaking Resp normal respiratory effort and clear to auscultation bilaterally Cardio regular rhythm Rate: tachycardic and other Other Details: Tachycardic rate with regular rhythm GI non-tender and non-distended GI Narrative: Abdomen is soft nontender nondistended with hyperactive bowel sounds no voluntary guarding or rigidity no pulsatile mass Auscultation: hyperactive bowel sounds Palpation: soft Back/Spine no CVA tenderness Extremity normal to inspection Extremity Narrative: No asymmetric edema no pitting edema negative Homans' sign bilaterally Neuro oriented x3 and CN's II-XII intact bilaterally Sensorium / Orientation: alert Psych mental status grossly normal Skin Skin Narrative: Soft tissue changes to the right breast/chest wall as documented above MDM MDM MDM Narrative Medical decision making narrative: Patient presented to the ER tachycardic and with low-grade fever. Her constellation of symptoms is most consistent with viral infection but with the recent vaginal delivery as well as right-sided chest wall pain and low-grade temperature she is a candidate for possible DVT/PE. Therefore his differential includes viral syndrome versus DVT versus PE versus gastroenteritis I did elect to perform basic laboratory studies with a D-dimer. D-dimer is negative going against DVT or PE. Chest x-ray revealed no acute lung pathology. Labs revealed no leukocytosis left shift or electrolyte derangement. Patient was hydrated and treated for her nausea and had improvement of her symptoms and her vitals improved as well. Therefore at this time as work-up is negative and exam and history is pointing to viral syndrome as a cause but she has no signs of systemic infection or respiratory distress she is otherwise safe for discharge. I do feel that the mild redness and irritation along the right chest wall is related to breast ductal dilation and obstruction and not true mastitis or cellulitis. History & Record Review Discussion w/independent historian: Patient and Significant other Lab Data Attestation: I reviewed the patient's lab results. Labs: Laboratory Results - last 24 hr 04/02/23 04/02/23 04/02/23 02:54 02:54 02:54 WBC 7.9 RBC 4.72 Hgb 13.8 Hct 43.2 MCV 91.5 MCH 29.2 MCHC 31.9 L RDW Std Deviation 41.8 RDW Coeff of Alex 12.3 Plt Count 294 MPV 10.4 Immature Gran % (Auto) 0.300 Neut % (Auto) 54.7 Lymph % (Auto) 38.2 [place] % (Auto) 4.4 Eos % (Auto) 1.9 Baso % (Auto) 0.5 Absolute Neuts (auto) 4.4 Absolute Lymphs (auto) 3.03 Nucleated RBC % 0 Differential Comment SCANNED D-Dimer Quant (PE/DVT) 0.40 Sodium 142 Potassium 4.3 Chloride 106 Carbon Dioxide 29.0 Anion Gap 7 BUN 17 Creatinine 1.01 Est GFR (MDRD) Af Amer 84 Est GFR (MDRD) Non-Af 70 BUN/Creatinine Ratio 16.8 Glucose 93 Calcium 9.4 Total Bilirubin 0.30 Direct Bilirubin < 0.05 AST 30 ALT 38 Alkaline Phosphatase 85 Total Protein 7.8 Albumin 4.0 Globulin 3.8 Radiography Diagnostic Testing: Clinical Impression(s) from Imaging Studies Chest X-Ray 04/02/23 03:30 IMPRESSION: No radiographic evidence of acute cardiopulmonary disease. Electronically Signed: Darinel Spain MD at 4:16 EDT , Chest x-ray as interpreted by the emergency medicine physician reveals no acute infiltrate pneumothorax or pleural effusion Discharge Plan Triage Chief Complaint: General Illness ED Provider: Luis Jordan Dx/Rx/DC Orders Clinical Impression: Acute viral syndrome Instructions: ED Viral Syndrome (Adult) Prescriptions: New ondansetron 4 mg tablet,disintegrating 4 mg PO TID PRN (Reason: nausea and vomiting) Qty: 21 0RF clindamycin HCl 300 mg capsule 300 mg PO 4X/DAY 7 Days Qty: 28 0RF No Action PreNata 1 tab PO/SL DAILY acetaminophen 500 mg Tablet 1,000 mg PO Q6H PRN PRN (Reason: Pain 1-10 Or Fever) Qty: 0 0RF ibuprofen 600 mg Tablet 600 mg PO Q6H PRN PRN (Reason: Pain Score 1-3) Qty: 0 0RF Primary Care Provider: Care Physician,No Primary Referrals: Care Physician,No Primary [Primary Care Provider] - Activity Restrictions/Additional Instructions: I feel that your right chest pain and mild redness and swelling is secondary to a milk duct gland obstruction and not secondary infection. I believe your symptoms of fatigue fever and chills are related to a viral infection. Keep your fever under control with Tylenol and stay well-hydrated. Fever from this type of viral infection will typically last 3 to 7 days. If you notice worsening of the right chest redness and swelling then you may fill the clindam ycin and begin taking it. Otherwise only use the Zofran as directed for further nausea and vomiting control Disposition Disposition: Home, Self Care Discharge Date/Time: 04/02/23 05:11
[2023-04-02 05:10] VITALS: BP 122/89; PULSE 65; RESP 18; TEMP 37.2; O2SAT 100
== END 2023-04-02 05:11 | disposition home or self-care (01) ==
PROVIDERS: Emergency Provider Emergency Medicine; Visit Provider Emergency Medicine
DX: B34.9 Viral infection, unspecified (principal); R05.9 Cough, unspecified; R11.2 Nausea with vomiting, unspecified; R07.9 Chest pain, unspecified
CPT/HCPCS: 71046; 80048; 80076; 85025; 85379; 99284; J7030; A4216; J2405

== ENCOUNTER → 2023-09-06 | Outpatient (CLI) | payer BC, SELFPAY ==
--- NOTE | 2023-09-06 14:30 | RAD_ITS ---
STUDY: X-RAY - RIGHT ANKLE REASON FOR EXAM: Female, 28 years old. Pain following injury. TECHNIQUE: 3 view(s) of the ankle. COMPARISON: None. FINDINGS: Normal visualized distal tibia and fibula. Normal medial and lateral malleoli. Normal tibiotalar articulation and ankle mortise. Normal visualized talus and calcaneus. The visualized subtalar, talonavicular, calcaneocuboid and tarsal articulations are normal. Lateral soft tissue swelling. RAD/Ankle min 3 Views IMPRESSION: Lateral soft tissue swelling. Electronically Signed: Sumit Patel MD at 15:10 EDT ,
== END | disposition home or self-care (01) ==
LOC: MTRAD 14:21
PROVIDERS: Referring Provider Physician Assistant; Visit Provider Physician Assistant
DX: M25.571 Pain in right ankle and joints of right foot (principal)
CPT/HCPCS: 73610

== ENCOUNTER → 2024-04-10 | Outpatient (CLI) | payer BC, OTHER, SELFPAY ==
[2024-04-10 18:20] LABS: Bacteria 0 SEEN /hpf (None Seen); Mucous, Urine 0 SEEN /hpf (<or=2+); Red Blood Cells-Urine 0 SEEN /hpf (0-5); Squamous Epithelial Cells - UA 0 SEEN /hpf (5-10); White Blood Cells 0 SEEN /hpf (0-5)
[2024-04-10 18:42] LABS: Color, Urine Yellow (Yellow); Glucose, Dipstick Normal (Normal); Ketone-Dipstick Negative (Negative); Leukocyte Esterase-Dipstick 25 /ul (Negative); Nitrite-Dipstick Negative (Negative); Occult Blood-Urine Negative /ul (Negative); Protein-Dipstick Negative (Negative); Specific Gravity, Urine 1.005 (1.002-1.030); Urine Bilirubin Dipstick Negative (Negative); Urine Clarity Clear (Clear); Urine Urobilinogen Normal (Normal)
== END | disposition home or self-care (01) ==
PROVIDERS: Referring Provider Physician Assistant; Visit Provider Physician Assistant
DX: R30.0 Dysuria (principal)
CPT/HCPCS: 81001; 87086

== ENCOUNTER → 2024-08-23 | Outpatient (CLI) | payer OTHER, SELFPAY | END | disposition home or self-care (01) | LOC: LABSPEC 15:09 | PROVIDERS: Referring Provider Nurse Practitioner Family; Visit Provider Nurse Practitioner Family | DX: N39.0 Urinary tract infection, site not specified (principal) | CPT/HCPCS: 87086; 87088 ==